=== PATIENT | male | born 1970 | race Two or more races ===

== ENCOUNTER 2019-03-20 12:52 | Emergency (ER) | payer BC ==
[~2019-03-20] VITALS: Ht 162.6 cm; Wt 70.3 kg
[2019-03-20 13:08] VITALS: BP 116/85
--- NOTE | 2019-03-20 13:15 | NUR ---
ED Nurse Note: Patient walked into ED c/o left eye swelling,redness, discharge for 5 days. patient reports he is getting Gentamycin eyedrops which is not helping much at this time. patient is alert awake x4 ambulatory steady gait, breathing unlabored and even.
--- NOTE | 2019-03-20 13:29 | Emergency Room Report ---
History of Present Illness General Chief Complaint: Eye Problems Source: Patient Present Illness HPI 48-year-old male with no significant past medical history here complaining of 4 days of pain and yellow discharge coming from left eye. Patient went to his primary care provider and was given gentamicin eye denies chest pain, shortness of breath, palpitation, and other associated symptoms. Drops however reports that it has not been helping and he has noticed pain and erythema around his left eye noticing left sided lymph nodes being swollen. Denies ear pain, sore throat, fever and chills, blurry vision, photophobia. Denies any chemical exposure or trauma to the eye. Denies history of diabetes. Denies headache and dizziness and congestion. Allergies: Coded Allergies: No Known Allergies (Unverified , 03/20/19) Patient History Past Medical History: see triage record Past Surgical History: unable to obtain Pertinent Family History: none Immunizations: UTD Reviewed Nursing Documentation: PMH: Agreed; PSxH: Agreed Nursing Documentation-PMH Past Medical History: No Stated History Review of Systems All Other Systems: negative except mentioned in HPI Physical Exam Vital Signs Date Time Temp Pulse Resp B/P (MAP) Pulse Ox O2 Delivery O2 Flow Rate FiO2 03/20/19 13:08 97.9 89 18 116/85 (95) 98 Room Air Sp02 EP Interpretation: reviewed, normal General Appearance: no apparent distress, alert, GCS 15, non-toxic Head: normocephalic, atraumatic Eyes: left eye other - Conjunctival injection on the left side as well as periorbital cellulitis noted; bilateral eye normal inspection, bilateral eye PERRL ENT: hearing grossly normal, normal pharynx, no angioedema, normal voice Neck: full range of motion, supple/symm/no masses Respiratory: chest non-tender, lungs clear, normal breath sounds, no rhonchi, speaking full sentences Cardiovascular #1: normal inspection, regular rate, rhythm, no murmur Gastrointestinal: normal inspection, soft Genitourinary: no CVA tenderness Musculoskeletal: normal inspection, back normal Neurologic: alert, oriented x3, responsive, motor strength/tone normal, sensory intact, speech normal Skin: no rash Lymphatic: normal inspection, no adenopathy Medical Decision Making PA Attestation Diagnosis and treatment plans were reviewed and discussed with my supervising physician Dr. Bray Diagnostic Impression: Primary Impression: Periorbital cellulitis of left eye ER Course 48-year-old male with no significant past medical history here complaining of 4 days of pain and yellow discharge coming from left eye. Patient went to his primary care provider and was given gentamicin eye denies chest pain, shortness of breath, palpitation, and other associated symptoms. Drops however reports that it has not been helping and he has noticed pain and erythema around his left eye noticing left sided lymph nodes being swollen. Denies ear pain, sore throat, fever and chills, blurry vision, photophobia. Denies any chemical exposure or trauma to the eye. Denies history of diabetes. Denies headache and dizziness and congestion. Ddx considered but are not limited to: bacterial conjunctivitis, allergic conjunctivitis, viral conjunctivitis, periorbital cellulitis, global trauma Vital signs: are WNL, pt. is afebrile H&PE are most consistent with: Periorbital cellulitis of left eye ORDERS: Keflex, ibuprofen ED INTERVENTIONS: None required at this time. DISCHARGE: At this time pt. is stable for d/c to home. Will provide printed patient care instructions, and any necessary prescriptions. Care plan and follow up instructions have been discussed with the patient prior to discharge. Advised patient to take medication as directed follow-up with primary care provider for referral to ophthalmology continue using gentamicin eyedrops. If worsening symptoms return to the emergency room Last Vital Signs Date Time Temp Pulse Resp B/P (MAP) Pulse Ox O2 Delivery O2 Flow Rate FiO2 03/20/19 13:08 97.9 89 18 116/85 (95) 98 Room Air Disposition: HOME, SELF-CARE Condition: Stable Scripts Ibuprofen* (MOTRIN*) 600 Mg Tablet 600 MG ORAL Q8H PRN for For Pain, #30 TAB 0 Refills Prov: Clement Sears 03/20/19 Cephalexin* (KEFLEX*) 500 Mg Capsule 500 MG ORAL EVERY 6 HOURS for 7 Days, #28 CAP Prov: Clement Sears 03/20/19 Patient Instructions: Preseptal Cellulitis, Adult Additional Instructions: Take medication as directed continue using your eyedrops follow-up with your primary care provider and if worsening symptoms see an urgent care physician. Return to the emergency room with fever and chills or blurred vision. Clement Sears Mar 20, 2019 13:29
[2019-03-20] MEDS ORDERED: CEPHALEXIN500 MG ORAL (13:30)
[2019-03-20] MEDS ORDERED: IBUPROFEN600 MG ORAL (13:30)
--- NOTE | 2019-03-20 13:45 | NUR ---
ER DISCHARGE NOTE: Patient is cleared to be discharged per PRIMO BEGUM, pt is aox4, on room air, with stable vital signs. pt was given dc and prescription instructions, pt was able to verbalize understanding, pt id band removed without complications. pt is able to ambulate with steady gait. pt took all belongings.
[2019-03-20 13:50] VITALS: BP 116/85
== END 2019-03-20 13:50 | disposition home or self-care (01) ==
LOC: EMR 13:10
DX: L03.213 Periorbital cellulitis (principal)
CPT/HCPCS: 99282